=== PATIENT | female | born 1935 | race Two or more races ===

== ENCOUNTER 2023-02-09 13:00 | Inpatient (IN) | payer OTHER ==
[~2023-02-09] VITALS: Ht 152.4 cm; Wt 70.8 kg
[2023-02-09] MEDS ORDERED: CLOPIDOGREL BIS75 MG (13:09)
[2023-02-09] MEDS ORDERED: SIMVASTATIN40 MG (13:09)
[2023-02-09] MEDS ORDERED: DEXLANSOPRAZOLE60 MG (13:10)
[2023-02-09] MEDS ORDERED: SERTRALINE HCL50 MG (13:10)
[2023-02-09] MEDS ORDERED: AMLODIPINE BESYL5 MG (13:10)
[2023-02-09] MEDS ORDERED: DOXAZOSIN MESYLA8 MG (13:10)
[2023-02-09] MEDS ORDERED: LOSARTAN POTAS100 MG (13:10)
[2023-02-09] MEDS ORDERED: TRADJENTA5 MG (13:10)
[2023-02-09 14:03] LABS: HEMATOCRIT 26.8 % (36.0-45.00); MEAN CELL VOLUME 78.6 fL (80.00-100.00); MEAN CORPUSCULAR HGB CONC 33.4 g/dl (32.0-36.0); PLATELET COUNT 145 K/uL (150-450); RED BLOOD COUNT 3.41 M/uL (4.00-6.00)
[2023-02-09 14:04] LABS: HEMOGLOBIN 8.9 g/dL (12.0-15.00)
[2023-02-09 14:05] LABS: ALBUMIN 3.6 gm/dL (3.4-5.0); BILIRUBIN TOTAL 0.35 mg/dL (0.3-1.2); CALCIUM 8.7 mg/dL (8.5-10.1); CREATININE SERUM 1.14 mg/dL (0.55-1.02); GFR 45.19; GLOBULINA 3.7 G/DL (2.4-3.5); POTASSIUM 3.99 mEq/L (3.5-5.1); TOTAL PROTEIN 7.3 gm/dL (6.4-8.2)
[2023-02-09 14:15] LABS: INR 1.01; PARTIAL THROMBOPLASTIN TIME 25.1 SECONDS (22.0-34.0); PROTHROMBIN TIME 10.6 SECONDS (9.0-11.5)
[2023-02-09 14:46] LABS: RED CELL DISTRIBUTION WIDTH 20.3 % (11.5-14.5)
[2023-02-09 23:08] LABS: ABG PH 7.406 (7.35-7.45); ABG pCO2 43.1 mmHg (35-45); BASE EXCESS 1.5 mmol/l; BICARBONATE 26.5 mmol/l (23-25); Tco2 27.8 mmol/l; o2 21 %
[2023-02-09 23:09] LABS: allen test SATISFACTORY; puncture site RADIAL LEFT
[2023-02-09 23:10] LABS: SaO2 97.2 %
[2023-02-10 07:38] LABS: ALBUMIN 3.1 gm/dL (3.4-5.0); BILIRUBIN TOTAL 0.36 mg/dL (0.3-1.2); BILIRUBIN,CONJUGATED 0.12 mg/dL (0.0-0.2); BILIRUBIN,UNCONJUGATED 0.24 mg/dL (0.0-0.6); CALCIUM 8.4 mg/dL (8.5-10.1); CREATININE SERUM 0.83 mg/dL (0.55-1.02); GFR 65.18; GLOBULINA 3.4 G/DL (2.4-3.5); POTASSIUM 4.17 mEq/L (3.5-5.1); TOTAL PROTEIN 6.5 gm/dL (6.4-8.2)
[2023-02-10 08:23] LABS: C-REACTIVE PROTEIN 0.38 MG/DL (0.00-0.29)
[2023-02-10 12:43] LABS: ob POSITIVE (NEGATIVE)
[2023-02-11 13:52] LABS: HEMATOCRIT 35.8 % (36.0-45.00); HEMOGLOBIN 11.8 g/dL (12.0-15.00); MEAN CELL VOLUME 78.9 fL (80.00-100.00); MEAN CORPUSCULAR HGB CONC 32.9 g/dl (32.0-36.0); PLATELET COUNT 136 K/uL (150-450); RED BLOOD COUNT 4.54 M/uL (4.00-6.00); RED CELL DISTRIBUTION WIDTH 19.7 % (11.5-14.5)
[2023-02-12 06:12] LABS: HEMATOCRIT 32.5 % (36.0-45.00); HEMOGLOBIN 10.8 g/dL (12.0-15.00); MEAN CELL VOLUME 79.6 fL (80.00-100.00); MEAN CORPUSCULAR HEMOGLOBIN 26.4 pg (27.00-32.0); MEAN CORPUSCULAR HGB CONC 33.1 g/dl (32.0-36.0); RED BLOOD COUNT 4.08 M/uL (4.00-6.00); RED CELL DISTRIBUTION WIDTH 19.7 % (11.5-14.5)
[2023-02-12 06:14] LABS: PLATELET COUNT 126 K/uL (150-450)
[2023-02-12] MEDS ORDERED: IPRATROPIU0.2 MG/1 M IH (13:04)
[2023-02-12] MEDS ORDERED: DOXAZOSIN MESYLA8 MG PO (13:05)
[2023-02-12] MEDS ORDERED: CLOPIDOGREL BIS75 MG PO (13:05)
[2023-02-12] MEDS ORDERED: AMLODIPINE BESYL5 MG PO (13:05)
[2023-02-12] MEDS ORDERED: SIMVASTATIN40 MG PO (13:06)
[2023-02-12] MEDS ORDERED: LOSARTAN POTAS100 MG PO (13:06)
[2023-02-12] MEDS ORDERED: GABAPENTIN300 MG PO (13:07)
[2023-02-12] MEDS ORDERED: SERTRALINE HCL50 MG PO (13:07)
== END 2023-02-12 14:23 | disposition home or self-care (01) | DRG 811 ==
LOC: ER 13:00 → MEDI 19:09
PROVIDERS: Emergency Medicine; General Practice; ADMIT Internal Medicine Hematology & Oncology; ATTEND Internal Medicine Hematology & Oncology
PROC: 4A12X4Z Monitoring of Cardiac Electrical Activity, External Approach (ICD-10-PCS; principal; 2023-02-09)
PROC: 30233N1 Transfusion of Nonautologous Red Blood Cells into Peripheral Vein, Percutaneous Approach (ICD-10-PCS; 2023-02-10)
PROC: BW21YZZ Computerized Tomography (CT Scan) of Abdomen and Pelvis using Other Contrast (ICD-10-PCS; 2023-02-10)
DX: D64.9 Anemia, unspecified (principal); K57.31 Diverticulosis of large intestine without perforation or abscess with bleeding; I25.10 Atherosclerotic heart disease of native coronary artery without angina pectoris; Z79.4 Long term (current) use of insulin; J44.9 Chronic obstructive pulmonary disease, unspecified; G47.33 Obstructive sleep apnea (adult) (pediatric); I12.9 Hypertensive chronic kidney disease with stage 1 through stage 4 chronic kidney disease, or unspecified chronic kidney disease; E11.22 Type 2 diabetes mellitus with diabetic chronic kidney disease; N18.30 Chronic kidney disease, stage 3 unspecified

== ENCOUNTER 2024-09-07 18:55 | Inpatient (IN) | payer OTHER ==
[~2024-09-07] VITALS: Ht 170.2 cm; Wt 68.0 kg
[~2024-09-07 18:55] MED LIST: AMLODIPINE BESYL5 MG; AMLODIPINE BESYL5 MG PO; CLOPIDOGREL BIS75 MG; CLOPIDOGREL BIS75 MG PO; DEXLANSOPRAZOLE60 MG; DOXAZOSIN MESYLA8 MG; DOXAZOSIN MESYLA8 MG PO; GABAPENTIN300 MG PO; IPRATROPIU0.2 MG/1 M IH; LOSARTAN POTAS100 MG; LOSARTAN POTAS100 MG PO; SERTRALINE HCL50 MG; SERTRALINE HCL50 MG PO; SIMVASTATIN40 MG; SIMVASTATIN40 MG PO; TRADJENTA5 MG
--- NOTE | 2024-09-07 19:49 | NUR ---
SE RECIBE PTE ALERTA Y ORIENTADA LA CUAL REFIERE VENIR POR COVID+ Y ANEMIA. PTE DE DR. NEELAM PAULINO. SE MIDEN S/V A PTE Y SE UBICA.
[2024-09-07] MEDS ORDERED: GUAIFENESIN/DEXTROMETHORPHAN 100MG/10ML BLIST.PACK PO ONE (20:15)
[2024-09-07] MEDS ORDERED: FAMOTIDINE/PF 20 MG/2 ML VIAL IV ONE (20:15)
--- NOTE | 2024-09-07 21:09 | NUR ---
SE EDUCA A PTE SOBRE [place] MEDICO, SE CHRIS MUESTRAS DE LABORATORIO UTILIZANDO MEDIDAS ASEPTICAS. SE COLOCA H/ LALIT DE EDEMA. SE ADMINISTRAN MEDICAMENTOS LETTY ORDEN MEDICA. SE CHRIS MTUBOS PILOTS A PTE Y SE REQUIZAN UNIDADES DE TERRY LETTY ORDEN MEDICA.
[2024-09-07 21:34] LABS: BASO % 0.3 % (0.1-1.2); EOS # 0.13 (0.04-0.54); EOS % 3.5 % (0.7-7.0); LYMPH # 0.82 (1.18-3.74); LYMPH % 22.0 % (19.3-53.1); MEAN PLATELET VOLUME 11.20 fl (9.4-12.4); MONO # 0.43 (0.24-0.82); MONO % 11.5 % (4.7-12.5); NEUT # 2.33 (1.56-6.13); NEUT % 62.4 % (34.0-71.1); RED CELL DISTRIBUTION WIDTH 16.9 % (11.6-14.4)
[2024-09-07 21:54] LABS: INR 1.0
[2024-09-07 22:01] LABS: ALT/SGPT 20.0 U/L (12-78); AST/SGOT 25.0 U/L (15-37); BILIRUBIN TOTAL 0.22 mg/dL (0.3-1.2); BUN CREA RATIO 14.0 (7.0-25.0); CREATININE SERUM 1.09 mg/dL (0.55-1.02); GFR 47.37; GLOBULINA 4.1 G/DL (2.4-3.5); GLUCOSE FASTING 97.0 mg/dL (65-100); OSMOLALITY SERUM 280.0 MOSM/KG (275-295)
[2024-09-07 22:15] LABS: COVID-19 AG POSITIVE (NEGATIVE)
[2024-09-07] MEDS ORDERED: ACETAMINOPHEN 500 MG GEL..CAP PO PRN (23:45)
[2024-09-07] MEDS ORDERED: 0.9 % SODIUM CHLORIDE 1,000 ML IV SCH (23:45)
[2024-09-08] MEDS ORDERED: INSULIN LISPRO 1,000 UNIT/10 ML UNITS SUBCUTANEO PRN (00:15)
[2024-09-08] MEDS ORDERED: DOXAZOSIN MESYLATE 4 MG TABLET PO ONE (00:15)
[2024-09-08] MEDS ORDERED: AZITHROMYCIN 500 MG in DEXTROSE 5 % IN WATER 250 ML IV ONE (00:15)
[2024-09-08] MEDS ORDERED: DEXTROSE 50 % IN WATER 0.5 G/ML DISP.SYRIN IV PRN (00:15)
[2024-09-08] MEDS ORDERED: LEVALBUTEROL HCL 1.25 MG/3 ML SOLUTION IH SCH (01:00)
[2024-09-08] MEDS ORDERED: GUAIFEN/DEXTROMETHORPHAN/PE 10 ML BLIST.PACK PO SCH (01:00)
[2024-09-08] MEDS ORDERED: IPRATROPIUM BROMIDE 0.5 MG/2.5 ML AMPUL.NEB IH SCH (01:00)
[2024-09-08 04:07] VITALS: BP 110/70
[2024-09-08 05:18] LABS: ABG PH 7.435 (7.35-7.45)
[2024-09-08 05:19] LABS: ABG PO2 70.6 mmHg (80-100); BICARBONATE 28.3 mmol/l (23-25); o2 21 %
[2024-09-08 08:09] VITALS: BP 156/72; O2SAT 97
[2024-09-08] MEDS ORDERED: BUPROPION HCL 150 MG TABLET.SA PO SCH (09:00)
[2024-09-08] MEDS ORDERED: ENOXAPARIN SODIUM 40 MG/0.4 ML SYRINGE SUBCUTANEO SCH (09:00)
[2024-09-08] MEDS ORDERED: LOSARTAN POTASSIUM 100 MG TABLET PO SCH (09:00)
[2024-09-08 11:04] LABS: URINE APPEARANCE Clear; URINE BILIRRUBIN Negative (NEGATIVE); URINE BLOOD Negative; URINE COLOR Yellow; URINE GLUCOSE Negative (NEGATIVE); URINE KETONE Negative (NEGATIVE); URINE LEUKOCYTE Negative; URINE NITRATE Negative; URINE PROTEIN Negative (NEGATIVE); URINE UROBILINOGEN 0.2 E.U./dl
[2024-09-08 11:10] LABS: URINE BACTERIA 123.5 uL (0.0-1933); URINE EPITHELIAL CELLS 5.6 uL (0.0-38.8); URINE RBC 9.9 uL (0.0-20.8)
[2024-09-08 11:55] LABS: URINE CAST 0.14 uL (0.0-1.40); URINE WBC 1.2 uL (0.0-23.2)
[2024-09-08] MEDS ORDERED: REMDESIVIR 100 MG VIAL IV NR (12:00)
[2024-09-08] MEDS ORDERED: DEXTROSE 50 % IN WATER 0.5 G/ML VIAL IV PRN (14:30)
[2024-09-08 15:47] VITALS: BP 170/74; O2SAT 96
[2024-09-08] MEDS ORDERED: INSULIN GLARGINE,HUM.REC.ANLOG 1,000 UNITS/10 ML UNITS SUBCUTANEO SCH (17:00)
[2024-09-08] MEDS ORDERED: DOXAZOSIN MESYLATE 8 MG TABLET PO SCH (17:00)
[2024-09-08] MEDS ORDERED: AMLODIPINE BESYLATE 5 MG TABLET PO SCH (17:49)
[2024-09-08] MEDS ORDERED: RINGERS SOLUTION,LACTATED 1,000 ML IV SCH (18:00)
[2024-09-09] VITALS: BP 167/78; O2SAT 96
[2024-09-09] MEDS ORDERED: PANTOPRAZOLE SODIUM 40 MG TABLET.DR PO SCH (09:00)
[2024-09-09 10:34] VITALS: BP 179/74; O2SAT 97
[2024-09-09] MEDS ORDERED: REMDESIVIR 100 MG VIAL IV SCH (12:00)
[2024-09-09 16:25] VITALS: BP 157/60; O2SAT 96
[2024-09-09] MEDS ORDERED: AMLODIPINE BESYLATE 5 MG TABLET PO SCH (17:00)
[2024-09-09 17:35] VITALS: BP 149/67; O2SAT 96
[2024-09-10 01:09] VITALS: BP 137/61; O2SAT 96
[2024-09-10 07:59] LABS: BASO % 0.2 % (0.1-1.2); EOS # 0.11 (0.04-0.54); EOS % 2.7 % (0.7-7.0); LYMPH # 1.18 (1.18-3.74); LYMPH % 29.2 % (19.3-53.1); MEAN PLATELET VOLUME 11.30 fl (9.4-12.4); MONO # 0.42 (0.24-0.82); MONO % 10.4 % (4.7-12.5); NEUT # 2.31 (1.56-6.13); NEUT % 57.3 % (34.0-71.1); RED CELL DISTRIBUTION WIDTH 16.5 % (11.6-14.4)
[2024-09-10 08:16] VITALS: BP 160/71; O2SAT 98
[2024-09-10 08:39] LABS: ALT/SGPT 22.0 U/L (12-78); AST/SGOT 20.0 U/L (15-37); BILIRUBIN TOTAL 0.33 mg/dL (0.3-1.2); BUN CREA RATIO 20.0 (7.0-25.0); CREATININE SERUM 0.92 mg/dL (0.55-1.02); GFR 57.61; GLOBULINA 3.4 G/DL (2.4-3.5); GLUCOSE FASTING 84.0 mg/dL (65-100); OSMOLALITY SERUM 282.0 MOSM/KG (275-295)
[2024-09-10] MEDS ORDERED: SODIUM CHLORIDE FOR INHALATION 1 VIAL.NEB IH SCH (10:35)
[2024-09-10 12:00] VITALS: BP 149/65; O2SAT 97
[2024-09-10 16:00] VITALS: BP 172/66; O2SAT 98
[2024-09-10 20:32] LABS: BASO % 0.3 % (0.1-1.2); EOS # 0.13 (0.04-0.54); EOS % 3.5 % (0.7-7.0); LYMPH # 1.06 (1.18-3.74); LYMPH % 28.9 % (19.3-53.1); MEAN PLATELET VOLUME 10.90 fl (9.4-12.4); MONO # 0.38 (0.24-0.82); MONO % 10.4 % (4.7-12.5); NEUT # 2.08 (1.56-6.13); NEUT % 56.6 % (34.0-71.1); RED CELL DISTRIBUTION WIDTH 16.3 % (11.6-14.4)
[2024-09-11 00:52] VITALS: BP 96/65
[2024-09-11 08:22] VITALS: BP 156/65; O2SAT 98
[2024-09-11] MEDS ORDERED: EPOETIN ALFA-EPBX 10,000 UNIT/ML VIAL (Retacrit) SUBCUTANEO SCH (09:00)
[2024-09-11] MEDS ORDERED: IRON/V.C/V.B12/FOLIC A/VIT. E 1 CAPL CAPLET PO SCH (09:00)
[2024-09-11] MEDS ORDERED: BENZONATATE 200 MG CAPSULE PO SCH (13:00)
[2024-09-11] MEDS ORDERED: IPRATROPIU0.2 MG/1 M IH (13:14)
[2024-09-11] MEDS ORDERED: DOXAZOSIN MESYLA8 MG PO (13:15)
[2024-09-11] MEDS ORDERED: XOPENEX CO1.25 MG/0. IH (13:15)
[2024-09-11] MEDS ORDERED: WELLBUTRIN SR150 MG PO (13:15)
[2024-09-11] MEDS ORDERED: LOSARTAN POTAS100 MG PO (13:15)
[2024-09-11] MEDS ORDERED: AMLODIPINE BESYL5 MG PO (13:15)
[2024-09-11] MEDS ORDERED: ALTIPRES LIQUI473 ML PO (13:16)
[2024-09-11] MEDS ORDERED: INTEGRA PLUS C1 EACH PO (13:16)
[2024-09-11] MEDS ORDERED: LANTUS SOL100 UNIT/1 SUBCUTANEO (13:18)
[2024-09-11] MEDS ORDERED: HUMALOG TE100 UNIT/1 SUBCUTANEO (13:19)
== END 2024-09-11 15:55 | disposition home or self-care (01) | DRG 177 ==
LOC: ER 18:55 → EDBD 21:39 → ER 21:39 → SEC-K 09-08 00:06 → SURH 09-08 00:06 → SEC-K 09-08 11:03 → SURH 09-09 13:55
PROVIDERS: General Practice; ADMIT Internal Medicine; ATTEND Internal Medicine
PROC: BB24ZZZ Computerized Tomography (CT Scan) of Bilateral Lungs (ICD-10-PCS; principal; 2024-09-08)
PROC: 3E0F7GC Introduction of Other Therapeutic Substance into Respiratory Tract, Via Natural or Artificial Opening (ICD-10-PCS; 2024-09-08)
PROC: 30233N1 Transfusion of Nonautologous Red Blood Cells into Peripheral Vein, Percutaneous Approach (ICD-10-PCS; 2024-09-08)
PROC: 8E0ZXY6 Isolation (ICD-10-PCS; 2024-09-08)
PROC: XW033E5 Introduction of Remdesivir Anti-infective into Peripheral Vein, Percutaneous Approach, New Technology Group 5 (ICD-10-PCS; 2024-09-09)
DX: U07.1 COVID-19 (principal); J12.82 Pneumonia due to coronavirus disease 2019; N17.8 Other acute kidney failure; R09.02 Hypoxemia; Z79.4 Long term (current) use of insulin; D46.Z Other myelodysplastic syndromes; Z87.891 Personal history of nicotine dependence; E11.22 Type 2 diabetes mellitus with diabetic chronic kidney disease; I12.9 Hypertensive chronic kidney disease with stage 1 through stage 4 chronic kidney disease, or unspecified chronic kidney disease; N18.31 Chronic kidney disease, stage 3a; J06.9 Acute upper respiratory infection, unspecified